=== PATIENT | male | born 1970 | race Caucasian/White ===

== ENCOUNTER 2018-02-12 21:58 | Inpatient (IN) | payer SELFPAY ==
[~2018-02-12] VITALS: Ht 180.3 cm; Wt 132.0 kg
[~2018-02-12 21:58] MED LIST: BACT800T5 PO; CEPH250T PO; GLIP5 OR; GLUCTES27 XX; LISI-357 PO; METF1000 PO; METF500 PO; NOVO7030P2 SQ
[2018-02-12] MEDS ORDERED: IOHEXOL 350 MG/ML 10 ML VIAL (for RAD DIAG) IVCONTRAST ONE (21:59)
[2018-02-12] MEDS ORDERED: SODIUM CHLOR 0.9% 1000 ML INJ 1,000 ML IV ONE ×3 (22:09→23:45)
[2018-02-12] MEDS ORDERED: SODIUM CHLORIDE 0.9% FLUSH 10 ML FLUSH IVF PRN (22:15)
[2018-02-12] MEDS ORDERED: HYDR-3583 PO (22:17)
[2018-02-12 22:18] VITALS: BP 133/81; PULSE 112; RESP 18; TEMP 98.6; O2SAT 97
[2018-02-12 22:23] VITALS: O2SAT 97
[2018-02-12] MEDS ORDERED: ONDANSETRON HCL 4 MG/2 ML VIAL IV PUSH ONE (22:30)
--- NOTE | 2018-02-12 22:43 | PD ---
HPI Chief Complaint: Altered Mental Status Time Seen by Provider: 22:09 Travel History International Travel<30 days: No Contact w/Intl Traveler<30days: No Traveled to known affect area: No History of Present Illness HPI Patient is a 47-year-old male with history of diabetes currently on insulin, presents the emergency room with his sister for evaluation of altered mental status. As per patient's sister, she last saw him normal around 5 PM tonight, reports that she left the house to attend [facility] and patient was in the shower. Reports that she came home and a family member noted that patient had fallen onto the ground and was not acting like his normal self. Reports concerns as he has some slurring his speech and patient appeared drowsy. Family reports that patient is on chronic narcotic pain medications as he has history of chronic back pain, they were unsure if he took too many narcotic pain medications today. Patient reports that he went to take a shower today, reports that he got out of the shower and does not remember what happened. Patient unsure how long he was on the floor today. He did call his nephew to help him up from the floor as he was unable to get up by himself. Patient denies use of any alcohol though family concerned that patient may have had alcohol tonight. Reports only use of his prescribed narcotic medications, no illegal drug use PFSH Past Medical History Anxiety: Yes Depression: Yes Heart Rhythm Problems: No Cancer: No Cardiovascular Problems: Yes High Cholesterol: No Chest Pain: No Congestive Heart Failure: No Diabetes: Yes Patient Takes Glucophage: No Diminished Hearing: No Gastrointestinal Disorders: Yes GERD: Yes Genitourinary: No Hypertension: Yes Immune Disorder: No Implanted Vascular Access Dvce: No Musculoskeletal: Yes Neurologic: No Reproductive: No Respiratory: Yes (pneumonia) Renal Failure: Yes Tetanus Vaccination: < 5 Years Influenza Vaccination: No Past Surgical History Other Surgery: Yes (left testacle/groin incision and drainage) Social History Alcohol Use: Yes (X2 PER MONTH/3 BEERS) Tobacco Use: Yes (1.5 ppd) Substance Use: Yes (MARIJUANA) Allergies-Medications (Allergen,Severity, Reaction): Coded Allergies: No Known Allergies (Verified Adverse Reaction, Unknown, 02/12/18) Reported Meds & Prescriptions Reported Meds & Active Scripts Active Reported Hydrocodone-Acetaminophen 10-325 mg Tab 1 Tab PO Q6H PRN Review of Systems ROS Limitations: Altered Mental Status General / Constitutional: No: Fever Eyes: No: Visual changes HENT: No: Headaches Cardiovascular: No: Chest Pain or Discomfort Respiratory: No: Shortness of Breath Gastrointestinal: Positive: Nausea, Vomiting, No: Abdominal Pain Genitourinary: No: Dysuria Musculoskeletal: No: Pain Skin: No Rash Neurologic: No: Weakness Psychiatric: No: Depression Endocrine: No: Polydipsia Hematologic/Lymphatic: No: Easy Bruising Physical Exam Narrative GENERAL: Moderate distress SKIN: Focused skin assessment warm/dry. HEAD: Atraumatic. Normocephalic. EYES: Pupils are pinpoint. No scleral icterus. No injection or drainage. ENT: No nasal bleeding or discharge. Mucous membranes pink and moist. NECK: Trachea midline. No JVD. No nuchal rigidity, negative Kernig's and Brudzinski's sign CARDIOVASCULAR: Regular rate and rhythm. No murmur appreciated. RESPIRATORY: No accessory muscle use. Clear to auscultation. Breath sounds equal bilaterally. GASTROINTESTINAL: Abdomen soft, non-tender, nondistended. Hepatic and splenic margins not palpable. MUSCULOSKELETAL: No obvious deformities. No clubbing. No cyanosis. No edema. NEUROLOGICAL: Awake and alert. No obvious cranial nerve deficits. Motor grossly within normal limits. Normal speech. PSYCHIATRIC: Appropriate mood and affect; insight and judgment normal. Data Data Last Documented VS Vital Signs Date Time Temp Pulse Resp B/P (MAP) Pulse Ox O2 Delivery O2 Flow Rate FiO2 02/13/18 00:22 84 18 154/80 (104) 98 02/12/18 22:23 Room Air 02/12/18 22:18 98.6 Orders Orders Electrocardiogram (02/12/18 22:09) Complete Blood Count With Diff (02/12/18 22:09) Comprehensive Metabolic Panel (02/12/18 22:09) Magnesium (Mg) (02/12/18 22:09) Ckmb (Isoenzyme) Profile (02/12/18 22:09) Troponin I (02/12/18 22:09) Act Partial Throm Time (Ptt) (02/12/18 22:09) Prothrombin Time / Inr (Pt) (02/12/18 22:09) Urinalysis - C+S If Indicated (02/12/18 22:09) Chest, Single Ap (02/12/18 22:09) Ct Brain W/O Iv Contrast(Rout) (02/12/18 22:09) Ct Cerv Spine W/O Contrast (02/12/18 22:09) Blood Glucose (02/12/18 22:09) Ecg Monitoring (02/12/18 22:09) Iv Access Insert/Monitor (02/12/18 22:09) Oximetry (02/12/18 22:09) Sodium Chloride 0.9% Flush (Ns Flush) (02/12/18 22:15) Sodium Chlor 0.9% 1000 Ml Inj (Ns 1000 M (02/12/18 22:09) Drug Screen, Random Urine (02/12/18 22:09) Alcohol (Ethanol) (02/12/18 22:09) Ondansetron Inj (Zofran Inj) (02/12/18 22:30) Lactic Acid Sepsis Protocol (02/12/18 23:45) Influenzae A/B Antigen (02/12/18 23:45) Blood Culture (02/12/18 23:45) Sodium Chlor 0.9% 1000 Ml Inj (Ns 1000 M (02/12/18 23:45) Sodium Chlor 0.9% 1000 Ml Inj (Ns 1000 M (02/12/18 23:45) Ct Abd/Pel W Iv Contrast(Rout) (02/13/18 00:01) Sepsis Workup Initiated (02/13/18 ) Vancomycin Inj (Vancomycin Inj) (02/13/18 00:02) Piperacil-Tazo 4.5 Gm Premix (Zosyn 4.5 (02/13/18 00:02) Insulin Human Regular Inj (Novolin R Inj (02/13/18 00:15) Blood Glucose (02/13/18 00:32) Blood Glucose (02/13/18 01:32) Iohexol 350 Inj (Omnipaque 350 Inj) (02/12/18 21:59) Sodium Chlor 0.9% 1000 Ml Inj (Ns 1000 M (02/13/18 01:00) Sodium Chlor 0.9% 1000 Ml Inj (Ns 1000 M (02/13/18 01:00) Labs Laboratory Tests Test 02/12/18 22:50 02/12/18 23:20 02/12/18 23:59 White Blood Count 20.0 TH/MM3 Red Blood Count 5.51 MIL/MM3 Hemoglobin 17.6 GM/DL Hematocrit 49.0 % Mean Corpuscular Volume 88.9 FL Mean Corpuscular Hemoglobin 31.9 PG Mean Corpuscular Hemoglobin Concent 35.9 % Red Cell Distribution Width 12.4 % Platelet Count 299 TH/MM3 Mean Platelet Volume 9.6 FL Neutrophils (%) (Auto) 80.7 % Lymphocytes (%) (Auto) 7.9 % Monocytes (%) (Auto) 6.8 % Eosinophils (%) (Auto) 0.3 % Basophils (%) (Auto) 4.3 % Neutrophils # (Auto) 16.0 TH/MM3 Lymphocytes # (Auto) 1.6 TH/MM3 Monocytes # (Auto) 1.4 TH/MM3 Eosinophils # (Auto) 0.1 TH/MM3 Basophils # (Auto) 0.9 TH/MM3 CBC Comment DIFF FINAL Differential Comment Prothrombin Time 10.5 SEC Prothromb Time International Ratio 1.0 RATIO Activated Partial Thromboplast Time 22.7 SEC Blood Urea Nitrogen 13 MG/DL Creatinine 1.00 MG/DL Random Glucose 537 MG/DL Total Protein 7.9 GM/DL Albumin 4.0 GM/DL Calcium Level 8.9 MG/DL Magnesium Level 1.5 MG/DL Alkaline Phosphatase 111 U/L Aspartate Amino Transf (AST/SGOT) 17 U/L Alanine Aminotransferase (ALT/SGPT) 39 U/L Total Bilirubin 0.4 MG/DL Sodium Level 136 MEQ/L Potassium Level 3.9 MEQ/L Chloride Level 102 MEQ/L Carbon Dioxide Level 22.4 MEQ/L Anion Gap 12 MEQ/L Estimat Glomerular Filtration Rate 80 ML/MIN Total Creatine Kinase 67 U/L Troponin I 0.02 NG/ML Ethyl Alcohol Level LESS THAN 3 MG/DL Urine Color YELLOW Urine Turbidity CLEAR Urine pH 5.0 Urine Specific Saxe GREATER/EQUAL 1.030 Urine Protein 100 mg/dL Urine Glucose (UA) 1000 OR GREATER mg/dL Urine Ketones NEG mg/dL Urine Occult Blood TRACE Urine Nitrite NEG Urine Bilirubin NEG Urine Urobilinogen 0.2 MG/DL Urine Leukocyte Esterase NEG Urine RBC 0-3 /hpf Urine WBC 0-2 /hpf Urine Squamous Epithelial Cells 0-5 /hpf Urine Bacteria NONE /hpf Microscopic Urinalysis Comment CULT NOT INDICATED Urine Opiates Screen POS Urine Barbiturates Screen NEG Urine Amphetamines Screen NEG Urine Benzodiazepines Screen POS Urine Cocaine Screen NEG Urine Cannabinoids Screen POS Lactic Acid Level 4.4 mmol/L MDM Medical Decision Making Medical Screen Exam Complete: Yes Emergency Medical Condition: Yes Medical Record Reviewed: Yes Interpretation(s) EKG at 2218: Sinus tachycardia at 114bpm, qt/qtc: 329/397, no acute st or t wave changes Vital Signs Date Time Temp Pulse Resp B/P (MAP) Pulse Ox O2 Delivery O2 Flow Rate FiO2 02/12/18 22:23 112 18 97 Room Air 02/12/18 22:23 97 Room Air 02/12/18 22:18 98.6 112 18 133/81 (98) 97 Differential Diagnosis Hyperglycemia, hypoglycemia, CVA, alcohol abuse, intracranial hemorrhage, ACS, arrhythmia, drug abuse Narrative Course Pt's BS 475, NIH scale 0, patient last seen normal around 5pm tonight, he is out of window for lysis if he is in fact suffering from CVA and this was discussed with patient's sister who is at bedside. BS 475, patient with no neurodeficits at this time, family reports that patient appears confused - he did have a syncopal episode - CT of head ordered to rule out ICH. During the course of the patients emergency department visit, the patients history, examination, and differential diagnosis were reviewed with the patient. The patient was placed on a monitoring analyst with oximetry and frequent blood pressure monitoring. The patient had an IV access obtained and blood work sent for analysis. The patient was initially provided IVF as well as zofran as patient began to vomit in the ER. The patients laboratory studies were reviewed and remarkable for CBC & BMP Diagram 02/12/18 22:50 Total Protein 7.9, Albumin 4.0, Calcium Level 8.9, Magnesium Level 1.5, Alkaline Phosphatase 111, Aspartate Amino Transf (AST/SGOT) 17, Alanine Aminotransferase (ALT/SGPT) 39, Total Bilirubin 0.4 Vital Signs Date Time Temp Pulse Resp B/P (MAP) Pulse Ox O2 Delivery O2 Flow Rate FiO2 02/12/18 22:23 112 18 97 Room Air 02/12/18 22:23 97 Room Air 02/12/18 22:18 98.6 112 18 133/81 (98) 97 Radiology studies were reviewed and remarkable for Last Impressions Head CT 02/12/182208 Signed Impressions: Service Date/Time: January 23:04 - CONCLUSION: Normal examination. Sánchez Ramirez Jr., MD Chest X-Ray 02/12/182208 Signed Impressions: Service Date/Time: January 23:18 - CONCLUSION: No acute disease. Sánchez Ramirez Jr., MD Cervical Spine CT 02/12/182208 Signed Impressions: Service Date/Time: January 23:04 - CONCLUSION: 1. No fracture or dislocation. 2. Degenerative changes as detailed above. Sánchez Ramirez Jr., MD Patient with a white blood cell count of 20,000, patient is tachycardic with a heart rate in with 112, patient does meet SIRS criteria. IV fluids were started , blood cultures as well as lactic acid are ordered. Patient was given broad- spectrum antibiotics with Zosyn as well as vancomycin. Patient reports that for the past few days, he has been having diarrhea, reports that today he began feeling nauseous. Patient with possible gastroenteritis? Patient reports history of gastric ulcer and was on omeprazole in the past. Reports that he has been having some upper abdominal pain. CT the abdomen and pelvis with IV contrast was ordered. Patient's blood sugar was elevated at 537, IV fluids as well as sq insulin was ordered Pt's lactic acid 4.4, patient has been pancultured, broad-spectrum antibiotics have been administered. Patient pending CT the abdomen and pelvis Last Impressions Abdomen/Pelvis CT 02/13/18 0001 Signed Impressions: Service Date/Time: Tuesday, February 13, 2018 00:29 - CONCLUSION: 1. No acute abnormality. 2. Hepatic steatosis. Sánchez Ramirez Jr., MD Head CT 02/12/182208 Signed Impressions: Service Date/Time: January 23:04 - CONCLUSION: Normal examination. Sánchez Ramirez Jr., MD Chest X-Ray 02/12/182208 Signed Impressions: Service Date/Time: January 23:18 - CONCLUSION: No acute disease. Sánchez Ramirez Jr., MD Cervical Spine CT 02/12/182208 Signed Impressions: Service Date/Time: January 23:04 - CONCLUSION: 1. No fracture or dislocation. 2. Degenerative changes as detailed above. Sánchez Ramirez Jr., MD CT the abdomen pelvis with no acute abnormalities, there is no clear source for patient's infection, he has been pancultured, will have medicine team follow cultures Case reviewed with Dr. Pugh who accepts patient to service Critical Care Narrative Aggregate critical care time was 45 minutes. Time to perform other separately billable procedures was not included in the critical care time. My time did not include minutes spent treating any other patients simultaneously or on activities that did not directly contribute to the patient's treatment. The services I provided to this patient were to treat and/or prevent clinically significant deterioration that could result in: , decompensation, deterioration I provided critical care services requiring my management, as noted below: Chart data review, documentation time, medication orders and management, vital sign assessments/reviewing monitor data, ordering and reviewing lab tests, ordering and interpreting/reviewing x-rays and diagnostic studies, care of the patient and discussion of the patient with the admitting physicians. Diagnosis Primary Impression: Sepsis Additional Impressions: Hyperglycemia Syncope and collapse Admitting Information Admitting Physician Requests: Admit Sharmaine Crouch DO February 12, 2018 22:43
[2018-02-12 23:02] LABS: BASOPHIL # 0.9 TH/MM3 (0-0.2); BASOPHIL % 4.3 % (0.0-2.0); EOSINOPHIL # 0.1 TH/MM3 (0-0.4); EOSINOPHIL % 0.3 % (0.0-4.0); HEMOGLOBIN 17.6 GM/DL (13.0-17.0); LYMPH % 7.9 % (9.0-44.0); LYMPHOCYTE # 1.6 TH/MM3 (1.0-4.8); MEAN CELL VOLUME 88.9 FL (80.0-100.0); MEAN CORPUSCULAR HEMOGLOBIN 31.9 PG (27.0-34.0); MEAN CORPUSCULAR HGB CONC 35.9 % (32.0-36.0); MEAN PLATELET VOLUME 9.6 FL (7.0-11.0); MONO % 6.8 % (0.0-8.0); MONOCYTE # 1.4 TH/MM3 (0-0.9); NEUT % 80.7 % (16.0-70.0); PLATELET COUNT 299 TH/MM3 (150-450); RED BLOOD COUNT 5.51 MIL/MM3 (4.50-5.90); RED CELL DISTRIBUTION WIDTH 12.4 % (11.6-17.2)
[2018-02-12 23:08] LABS: CHLORIDE 102 MEQ/L (98-107); SODIUM (NA) 136 MEQ/L (136-145)
[2018-02-12 23:11] LABS: CALCIUM 8.9 MG/DL (8.5-10.1)
[2018-02-12 23:12] LABS: BICARBONATE 22.4 MEQ/L (21.0-32.0); BLOOD UREA NITROGEN 13 MG/DL (7-18); MAGNESIUM 1.5 MG/DL (1.5-2.5)
[2018-02-12 23:14] LABS: PROTHROMBIN TIME - PATIENT 10.5 SEC (9.8-11.6)
[2018-02-12 23:15] LABS: ALT (GPT) 39 U/L (12-78); AST (GOT) 17 U/L (15-37); GLOMERULAR FILTRATION RATE 80 ML/MIN (>89)
[2018-02-12 23:17] LABS: TOTAL BILIRUBIN ADULT 0.4 MG/DL (0.2-1.0); TOTAL PROTEIN 7.9 GM/DL (6.4-8.2)
[2018-02-12 23:31] LABS: ALKALINE PHOSPHATASE 111 U/L (45-117); TROPONIN I 0.02 NG/ML (0.02-0.05)
[2018-02-12 23:31] LABS: BILIRUBIN, URINE NEG (NEG); BLOOD, URINE TRACE (NEG); GLUCOSE,URINE 1000 OR GREATER mg/dL (NEG); KETONE, URINE NEG (NEG); NITRITE,URINE NEG (NEG); URINE COLOR YELLOW (YELLW/STRAW); URINE LEUKOCYTE ESTERASE NEG (NEG)
[2018-02-12 23:32] LABS: GLUCOSE,RANDOM 537 MG/DL (74-106)
--- NOTE | 2018-02-12 23:32 | RADRPT ---
EXAM DATE/TIME: 02/12/2018 23:04 [facility] COMPARISON: No previous studies available for comparison. INDICATIONS : Patient fell hitting back of head, complains of headache and nausea. RADIATION DOSE: 67.14 CTDIvol (mGy) MEDICAL HISTORY : Cardiovascular disease. Hypertension. Diabetes mellitus type 1. SURGICAL HISTORY : None. ENCOUNTER: Initial ACUITY: 1 day PAIN SCALE: 5/10 LOCATION: cranial TECHNIQUE: Multiple contiguous axial images were obtained of the head. Using automated exposure control and adj ustment of the mA and/or kV according to patient size, radiation dose was kept as low as reasonably a chievable to obtain optimal diagnostic quality images. DICOM format image data is available electro nically for review and comparison. FINDINGS: CEREBRUM: The ventricles are normal for age. No evidence of midline shift, mass lesion, hemorrhage or acute in farction. No extra-axial fluid collections are seen. POSTERIOR FOSSA: The cerebellum and brainstem are intact. The 4th ventricle is midline. The cerebellopontine angle i s unremarkable. EXTRACRANIAL: The visualized portion of the orbits is intact. SKULL: The calvaria is intact. No evidence of skull fracture. CONCLUSION: Normal examination. Sánchez Ramirez Jr., MD on February 12, 2018 at 23:30 Board Certified Radiologist. This report was verified electronically.
--- NOTE | 2018-02-12 23:33 | RADRPT ---
EXAM DATE/TIME: 02/12/2018 23:18 [facility] COMPARISON: CHEST SINGLE AP, April 21, 2016, 13:29. INDICATIONS : Syncopal episode today MEDICAL HISTORY : Cardiovascular disease. Hypertension Diabetes mellitus type I. SURGICAL HISTORY : None. ENCOUNTER: Initial ACUITY: 1 day PAIN SCORE: 0/10 LOCATION: Bilateral chest FINDINGS: A single view of the chest demonstrates the lungs to be symmetrically aerated without evidence of mas s, infiltrate or effusion. The cardiomediastinal contours are unremarkable. Osseous structures are intact. CONCLUSION: No acute disease. Sánchez Ramirez Jr., MD on February 12, 2018 at 23:31 Board Certified Radiologist. This report was verified electronically.
[2018-02-12 23:36] LABS: RBC, URINE 0-3 /hpf (0-3); SQUAMOUS EPITHELIAL CELL URINE 0-5 /hpf (0-5); WBC, URINE 0-2 /hpf (0-5)
--- NOTE | 2018-02-12 23:37 | RADRPT ---
EXAM DATE/TIME: 02/12/2018 23:04 [facility] COMPARISON: No previous studies available for comparison. INDICATIONS : Patient fell hitting head, complains of neck pain. RADIATION DOSE: 26.73 CTDIvol (mGy) MEDICAL HISTORY : Cardiovascular disease. Hypertension. Diabetes mellitus type 1. SURGICAL HISTORY : None. ENCOUNTER: Initial ACUITY: 1 day PAIN SCALE: 5/10 LOCATION: neck TECHNIQUE: Volumetric scanning of the cervical spine was performed. Multiplanar reconstructions in the sagittal, coronal and oblique axial planes were performed. Using automated exposure control and adjustment o f the mA and/or kV according to patient size, radiation dose was kept as low as reasonably achievable to obtain optimal diagnostic quality images. DICOM format image data is available electronically f or review and comparison. FINDINGS: VERTEBRAE: Normal vertebral body height. ALIGNMENT: No evidence of subluxation. C2-C3: The bony spinal canal is normal in size. No evidence of disc bulge or herniation. The neural forami na are bilaterally patent. C3-C4: The bony spinal canal is normal in size. No evidence of disc bulge or herniation. Prominent bony hyp ertrophy more pronounced on the left with severe left neural foraminal narrowing and moderate right n eural foraminal narrowing. C4-C5: There is a broad-based disc bulge eccentric to the right. This in combination with prominent bony hyp ertrophy causes narrowing of the right lateral recess. Left lateral recess is patent. Severe narrowin g of the right and moderate narrowing of the left neural foramen. Central canal remains patent. C5-C6: The bony spinal canal is normal in size. No evidence of disc bulge or herniation. Prominent bony hyp ertrophy bilaterally generating severe right and moderate left neural foraminal narrowing. C6-C7: The bony spinal canal is normal in size. No evidence of disc bulge or herniation. Pronounced bony un covertebral hypertrophy with severe bilateral neural foraminal narrowing. C7-T1: The bony spinal canal is normal in size. No evidence of disc bulge or herniation. The neural forami na are bilaterally patent. CONCLUSION: 1. No fracture or dislocation. 2. Degenerative changes as detailed above. Sánchez Ramirez Jr., MD on February 12, 2018 at 23:32 Board Certified Radiologist. This report was verified electronically.
[2018-02-13] VITALS (21 sets, daily range): BP systolic 104–164; BP diastolic 58–84; PULSE 66–86; RESP 10–30; TEMP 97.9–99.1; O2SAT 92–98
[2018-02-13] MEDS ORDERED: PIPERACIL-TAZO 4.5 GM PREMIX 100 ML IV STA (00:02)
[2018-02-13] MEDS ORDERED: VANCOMYCIN INJ 1,000 MG in SODIUM CHLOR 0.9% 250 ML INJ 250 ML IV STA (00:02)
[2018-02-13] MEDS ORDERED: INSULIN HUMAN REGULAR 1,000 UNITS/10 ML VIAL SQ ONE (00:15)
[2018-02-13 00:48] LABS: LACTIC ACID SEPSIS PROTOCOL 4.4 mmol/L (0.4-2.0)
--- NOTE | 2018-02-13 00:54 | RADRPT ---
EXAM DATE/TIME: 02/13/2018 00:29 [facility] COMPARISON: No previous studies available for comparison. INDICATIONS : Abdominal pain. IV CONTRAST: 95 cc Omnipaque 350 (iohexol) IV ORAL CONTRAST: No oral contrast ingested. RADIATION DOSE: 22.07 CTDIvol (mGy) MEDICAL HISTORY : Cardiovascular disease. Hypertension. Diabetes mellitus type 1. SURGICAL HISTORY : None. ENCOUNTER: Initial ACUITY: 1 day PAIN SCALE: 0/10 LOCATION: abdomen TECHNIQUE: Volumetric scanning of the abdomen and pelvis was performed. Using automated exposure control and ad justment of the mA and/or kV according to patient size, radiation dose was kept as low as reasonably achievable to obtain optimal diagnostic quality images. DICOM format image data is available electro nically for review and comparison. FINDINGS: LOWER LUNGS: The visualized lower lungs are clear. LIVER: Homogeneously low in density without lesion. There is no dilation of the biliary tree. No calcified gallstones. SPLEEN: Normal size without lesion. PANCREAS: Within normal limits. KIDNEYS: Normal in size and shape. There is no mass, stone or hydronephrosis. ADRENAL GLANDS: Within normal limits. VASCULAR: There is no aortic aneurysm. BOWEL/MESENTERY: The stomach, small bowel, and colon demonstrate no acute abnormality. There is no free intraperitone al air or fluid. Appendix is normal by CT criteria. ABDOMINAL WALL: Within normal limits. RETROPERITONEUM: There is no lymphadenopathy. BLADDER: No wall thickening or mass. REPRODUCTIVE: Within normal limits. INGUINAL: There is no lymphadenopathy or hernia. MUSCULOSKELETAL: Within normal limits for patient age. CONCLUSION: 1. No acute abnormality. 2. Hepatic steatosis. Sánchez Ramirez Jr., MD on February 13, 2018 at 0:50 Board Certified Radiologist. This report was verified electronically.
[2018-02-13] MEDS ORDERED: SODIUM CHLOR 0.9% 1000 ML INJ 1,000 ML IV ONE ×2 (01:00)
[2018-02-13] MEDS: SODIUM CHLOR 0.9% 1000 ML INJ 1,000 ML IV SCH ×4 (01:27→23:11)
[2018-02-13] MEDS ORDERED: SENNOSIDES 8.6 MG TAB PO PRN (01:30)
[2018-02-13] MEDS ORDERED: BISACODYL 10 MG SUPP RECTAL PRN (01:30)
[2018-02-13] MEDS ORDERED: MAGNESIUM HYDROXIDE SUSP 30 ML CUP PO PRN (01:30)
[2018-02-13] MEDS ORDERED: ASPIRIN 325 MG TAB PO ONE (01:30)
[2018-02-13] MEDS ORDERED: SODIUM CHLORIDE 0.9% FLUSH 10 ML FLUSH IV FLUSH PRN (01:30)
[2018-02-13] MEDS ORDERED: GLUCAGON 1 MG/ML VIAL OTHER PRN (01:30)
[2018-02-13] MEDS ORDERED: ACETAMINOPHEN 325 MG TAB PO PRN (01:30)
[2018-02-13] MEDS ORDERED: Vancomycin Consult Pharmacy 1 EA OTHER SCH (01:30)
[2018-02-13] MEDS ORDERED: NALOXONE HCL 0.4 MG/ML AMP IV PUSH PRN (01:30)
[2018-02-13] MEDS ORDERED: DEXTROSE 50% IN WATER 50 ML VIAL(D50) IV PUSH PRN (01:30)
[2018-02-13] MEDS ORDERED: LACTULOSE SYRUP 20 GM/30 ML CUP PO PRN (01:30)
[2018-02-13] MEDS ORDERED: ONDANSETRON ODT 4 MG TAB PO PRN (01:45)
[2018-02-13] MEDS ORDERED: VANCOMYCIN 1 GM/200 ML PREMIX IV ONE (03:00)
[2018-02-13] MEDS: ACETAMINOPHEN/HYDROcodone 325 MG/10 MG TAB PO PRN ×4 (03:33→22:06)
[2018-02-13] MEDS: PIPERACIL-TAZO 3.375 GM PREMIX 50 ML IV SCH ×4 (05:47→23:10)
[2018-02-13] MEDS: SODIUM CHLORIDE 0.9% FLUSH 10 ML FLUSH IV FLUSH SCH ×2 (09:00→20:26)
[2018-02-13] MEDS: DOCUSATE SODIUM 50 MG/SENNA 8.6 MG TAB PO SCH ×2 (09:00→20:27)
[2018-02-13] MEDS: INSULIN ASPART SUPPLEMENTAL SCALE SQ SCH ×5 (09:35→20:45)
[2018-02-13 11:20] LABS: BICARBONATE 26.6 MEQ/L (21.0-32.0); CALCIUM 7.6 MG/DL (8.5-10.1); CREATININE 0.69 MG/DL (0.60-1.30)
[2018-02-13] MEDS ORDERED: VANCOMYCIN INJ 1,000 MG in SODIUM CHLOR 0.9% 250 ML INJ 250 ML IV SCH (12:00)
[2018-02-13] MEDS: VANCOMYCIN INJ 2,000 MG in SODIUM CHLORID 0.9% 500 ML INJ 500 ML IV SCH (12:35)
--- NOTE | 2018-02-13 13:21 | HHI.HP ---
[facility] No Primary Care Physician Admission Diagnosis Sepsis, hyperglycemia, syncope Diagnoses: Chief Complaint: passed out Travel History International Travel<30 Days: No Contact w/Intl Traveler <30 Da: No Traveled to Known Affected Are: No Sepsis Criteria SIRS Criteria (2 or more): RR > 20 or PaCO2 < 32, WBC > 47280, < 4000 or > 10 % bands Severe Sepsis (+one): Lactate >2 Criteria Outcome: Meets SIRS criteria History of Present Illness Patient is a 47 year old man who is non compliant with DM2 management and who uses illicit drugs. He was found by his family on the ground with an unwitnessed fall. He had some slurred speech and was drowsy. Patient recalls being inthe shower and then his family was waking him up. He has no pain complaint. HE says he may or may not have taken insulin "a few Units" without checking his blood sugar. He also admits to to recent THC, Opioids and and benzos to help him relax. He was brought to the ER and fount to have an elevated WBC and lactic acid. he denies junito fever or chills but thinks he had an episode of Diarrhea earlier this week. His random BG was over 500. The patient is now back to baseline. Review of Systems Constitutional: COMPLAINS OF: Fatigue, DENIES: Diaphoretic episodes, Fever, Weight gain, Weight loss, Chills, Dizziness, Change in appetite, Night Sweats Endocrine: DENIES: Heat/cold intolerance, Polydipsia, Polyuria, Polyphagia Eyes: DENIES: Blurred vision, Diplopia, Eye inflammation, Eye pain, Vision loss , Photosensitivity, Double Vision Ears, nose, mouth, throat: DENIES: Tinnitus, Hearing loss, Vertigo, Nasal discharge, Oral lesions, Throat pain, Hoarseness, Ear Pain, Running Nose, Epistaxis, Sinus Pain, Toothache, Odynophagia Respiratory: DENIES: Apneas, Cough, Snoring, Wheezing, Hemoptysis, Sputum production, Shortness of breath Cardiovascular: DENIES: Chest pain, Palpitations, Syncope, Dyspnea on Exertion , PND, Lower Extremity Edema, Orthopnea, Claudication Gastrointestinal: DENIES: Abdominal pain, Black stools, Bloody stools, Constipation, Diarrhea, Nausea, Vomiting, Difficulty Swallowing, Anorexia Genitourinary: DENIES: Sexual dysfunction, Urinary frequency, Urinary incontinence, Urgency, Hematuria, Dysuria, Nocturia, Penile Discharge, Testicular Pain, Testicular Swelling Musculoskeletal: DENIES: Joint pain, Muscle aches, Stiffness, Joint Swelling, Back pain, Neck pain Integumentary: DENIES: Abnormal pigmentation, Nail changes, Pruritus, Rash Hematologic/lymphatic: DENIES: Bruising, Lymphadenopathy Immunologic/allergic: DENIES: Eczema, Urticaria Neurologic: DENIES: Abnormal gait, Headache, Localized weakness, Paresthesias, Seizures, Speech Problems, Tremor, Poor Balance Psychiatric: DENIES: Anxiety, Confusion, Mood changes, Depression, Hallucinations, Agitation, Suicidal Ideation, Homicidal Ideation, Delusions Except as stated in HPI: all other systems reviewed are Neg Past Family Social History Past Medical History dm htn Past Surgical History groin abscess i and d Reported Medications insulin infrequently Allergies: Coded Allergies: No Known Allergies (Verified Allergy, Unknown, 02/13/18) Active Ordered Medications reviewed in the emr Family History mother from etoh complications father with dm, CAD, htn Social History thc, street benzos, opiods lives with family denies etoh Physical Exam Vital Signs Vital Signs Date Time Temp Pulse Resp B/P (MAP) Pulse Ox O2 Delivery O2 Flow Rate FiO2 02/13/18 11:18 30 02/13/18 04:02 84 02/13/18 04:02 97.9 84 23 119/75 (90) 97 02/13/18 02:54 84 18 87 02/13/18 02:52 82 18 151/84 (106) 97 Room Air 02/13/18 01:41 84 18 145/83 (103) 98 Nasal Cannula 2.00 02/13/18 00:22 84 18 154/80 (104) 98 02/12/18 22:23 112 18 97 Room Air 02/12/18 22:23 97 Room Air 02/12/18 22:18 98.6 112 18 133/81 (98) 97 Physical Exam GENERAL: This is a well-nourished, well-developed patient, in no apparent distress. SKIN: No rashes, ecchymoses or lesions. Cool and dry. HEAD: Atraumatic. Normocephalic. No temporal or scalp tenderness. EYES: Pupils equal round and reactive. Extraocular motions intact. No scleral icterus. No injection or drainage. ENT: Nose without bleeding, purulent drainage or septal hematoma. Throat without erythema, tonsillar hypertrophy or exudate. Uvula midline. Airway patent. NECK: Trachea midline. No JVD or lymphadenopathy. Supple, nontender, no meningeal signs. CARDIOVASCULAR: Regular rate and rhythm without murmurs, gallops, or rubs. RESPIRATORY: Clear to auscultation. Breath sounds equal bilaterally. No wheezes , rales, or rhonchi. GASTROINTESTINAL: Abdomen soft, non-tender, nondistended. No hepato-splenomegaly , or palpable masses. No guarding. MUSCULOSKELETAL: Extremities without clubbing, cyanosis, or edema. No joint tenderness, effusion, or edema noted. No calf tenderness. Negative Homans sign bilaterally. NEUROLOGICAL: Awake and alert. Cranial nerves II through XII intact. Motor and sensory grossly within normal limits. Five out of 5 muscle strength in all muscle groups. Normal speech. Laboratory Laboratory Tests Test 02/12/18 22:50 02/12/18 23:20 02/12/18 23:59 02/13/18 02:30 White Blood Count 20.0 Red Blood Count 5.51 Hemoglobin 17.6 Hematocrit 49.0 Mean Corpuscular Volume 88.9 Mean Corpuscular Hemoglobin 31.9 Mean Corpuscular Hemoglobin Concent 35.9 Red Cell Distribution Width 12.4 Platelet Count 299 Mean Platelet Volume 9.6 Neutrophils (%) (Auto) 80.7 Lymphocytes (%) (Auto) 7.9 Monocytes (%) (Auto) 6.8 Eosinophils (%) (Auto) 0.3 Basophils (%) (Auto) 4.3 Neutrophils # (Auto) 16.0 Lymphocytes # (Auto) 1.6 Monocytes # (Auto) 1.4 Eosinophils # (Auto) 0.1 Basophils # (Auto) 0.9 CBC Comment DIFF FINAL Differential Comment Prothrombin Time 10.5 Prothromb Time International Ratio 1.0 Activated Partial Thromboplast Time 22.7 Blood Urea Nitrogen 13 Creatinine 1.00 Random Glucose 537 Total Protein 7.9 Albumin 4.0 Calcium Level 8.9 Magnesium Level 1.5 Alkaline Phosphatase 111 Aspartate Amino Transf (AST/SGOT) 17 Alanine Aminotransferase (ALT/SGPT) 39 Total Bilirubin 0.4 Sodium Level 136 Potassium Level 3.9 Chloride Level 102 Carbon Dioxide Level 22.4 Anion Gap 12 Estimat Glomerular Filtration Rate 80 Total Creatine Kinase 67 Troponin I 0.02 Ethyl Alcohol Level LESS THAN 3 Urine Color YELLOW Urine Turbidity CLEAR Urine pH 5.0 Urine Specific [place] GREATER/EQUAL 1.030 Urine Protein 100 Urine Glucose (UA) 1000 OR GREATER Urine Ketones NEG Urine Occult Blood TRACE Urine Nitrite NEG Urine Bilirubin NEG Urine Urobilinogen 0.2 Urine Leukocyte Esterase NEG Urine RBC 0-3 Urine WBC 0-2 Urine Squamous Epithelial Cells 0-5 Urine Bacteria NONE Microscopic Urinalysis Comment CULT NOT INDICATED Urine Opiates Screen POS Urine Barbiturates Screen NEG Urine Amphetamines Screen NEG Urine Benzodiazepines Screen POS Urine Cocaine Screen NEG Urine Cannabinoids Screen POS Lactic Acid Level 4.4 4.7 Test 02/13/18 09:55 Blood Urea Nitrogen 10 Creatinine 0.69 Random Glucose 252 Calcium Level 7.6 Sodium Level 139 Potassium Level 3.8 Chloride Level 106 Carbon Dioxide Level 26.6 Anion Gap 6 Estimat Glomerular Filtration Rate 123 Date/Time Source Procedure Growth Status 02/12/18 00:10 Blood Peripheral Aerobic Blood Culture Pending Received 02/12/18 00:10 Blood Peripheral Anaerobic Blood Culture Pending Received 02/12/18 00:10 Nasal Aspirate Influenza Types A,B Antigen (BETINA) - Final NEGATIVE FOR FLU A AND B ANTIGEN.... Complete Result Diagram: 02/12/18224902/13/18 0955 Imaging Last Impressions Abdomen/Pelvis CT 02/13/18 0001 Signed Impressions: Service Date/Time: Tuesday, February 13, 2018 00:29 - CONCLUSION: 1. No acute abnormality. 2. Hepatic steatosis. Sánchez Ramirez Jr., MD Head CT 02/12/182208 Signed Impressions: Service Date/Time: January 23:04 - CONCLUSION: Normal examination. Sánchez Ramirez Jr., MD Chest X-Ray 02/12/182208 Signed Impressions: Service Date/Time: January 23:18 - CONCLUSION: No acute disease. Sánchez Ramirez Jr., MD Cervical Spine CT 02/12/182208 Signed Impressions: Service Date/Time: January 23:04 - CONCLUSION: 1. No fracture or dislocation. 2. Degenerative changes as detailed above. Sánchez Ramirez Jr., MD Septic Shock Reassessment Septic shock perfusion: reassessment completed Caprini VTE Risk Assessment Caprini VTE Risk Assessment: Mod/High Risk (score >= 2) Caprini Risk Assessment Model Point Value = 1 Point Value = 2 Point Value = 3 Point Value = 5 Age 41-60 Minor surgery BMI > 25 kg/m2 Swollen legs Varicose veins or History of unexplained or recurrent spontaneous Oral contraceptives or hormone replacement Sepsis (< 1 month) Serious lung disease, including pneumonia (< 1 month) Abnormal pulmonary function Acute myocardial infarction Congestive heart failure (< 1 month) History of inflammatory bowel disease Medical patient at bed rest Age 61-74 Arthroscopic surgery Major open surgery (> 45 min) Laparoscopic surgery (> 45 min) Malignancy Confined to bed (> 72 hours) Immobilizing plaster cast Central venous access Age >= 75 History of VTE Family history of VTE Factor V Leiden Prothrombin [id number] Lupus anticoagulant Anticardiolipin antibodies Elevated serum homocysteine Heparin-induced thrombocytopenia Other congenital or acquired thrombophilia Stroke (< 1 month) Elective arthroplasty Hip, pelvis, or leg fracture Acute spinal cord injury (< 1 month) Prophylaxis Regimen Total Risk Factor Score Risk Level Prophylaxis Regimen 0-1 Low Early ambulation 2 Moderate Order ONE of the following: *Sequential Compression Device (SCD) *Heparin 5000 units SQ BID 3-4 Higher Order ONE of the following medications: *Heparin 5000 units SQ TID *Enoxaparin/Lovenox 40 mg SQ daily (WT < 150 kg, CrCl > 30 mL/min) *Enoxaparin/Lovenox 30 mg SQ daily (WT < 150 kg, CrCl > 10-29 mL/min) *Enoxaparin/Lovenox 30 mg SQ BID (WT < 150 kg, CrCl > 30 mL/min) AND/OR *Sequential Compression Device (SCD) 5 or more Highest Order ONE of the following medications: *Heparin 5000 units SQ TID (Preferred with Epidurals) *Enoxaparin/Lovenox 40 mg SQ daily (WT < 150 kg, CrCl > 30 mL/min) *Enoxaparin/Lovenox 30 mg SQ daily (WT < 150 kg, CrCl > 10-29 mL/min) *Enoxaparin/Lovenox 30 mg SQ BID (WT < 150 kg, CrCl > 30 mL/min) AND *Sequential Compression Device (SCD) Assessment and Plan Problem List: (1) Hyperglycemia ICD Code: R73.9 - Hyperglycemia, unspecified Status: Acute Plan: secondary to non adherence ptn education provided ssi, ada diet (2) Diabetes ICD Code: E11.9 - Type 2 diabetes mellitus without complications Status: Chronic (3) Syncope and collapse ICD Code: R55 - Syncope and collapse Status: Acute Plan: may be multifactorial due to street polypharmacy (thc, benadryl, opiods, and benzos) and uncontrolled DM2 no infectious source empiric zosyn and vanco and follow up cultures, Lactic acid, and wbc's Berta Schafer MD February 13, 2018 13:21
[2018-02-13 14:23] LABS: AUTOMATED NEUTROPHIL # 7.7 TH/MM3 (1.8-7.7); BASOPHIL # 0.1 TH/MM3 (0-0.2); BASOPHIL % 1.3 % (0.0-2.0); EOSINOPHIL # 0.2 TH/MM3 (0-0.4); EOSINOPHIL % 1.6 % (0.0-4.0); HEMATOCRIT 41.5 % (39.0-51.0); HEMOGLOBIN 14.1 GM/DL (13.0-17.0); LYMPHOCYTE # 2.6 TH/MM3 (1.0-4.8); MEAN CELL VOLUME 89.2 FL (80.0-100.0); MEAN CORPUSCULAR HEMOGLOBIN 30.4 PG (27.0-34.0); MEAN PLATELET VOLUME 8.8 FL (7.0-11.0); MONO % 6.4 % (0.0-8.0); MONOCYTE # 0.7 TH/MM3 (0-0.9); NEUT % 67.7 % (16.0-70.0); PLATELET COUNT 184 TH/MM3 (150-450); RED BLOOD COUNT 4.65 MIL/MM3 (4.50-5.90); RED CELL DISTRIBUTION WIDTH 11.9 % (11.6-17.2); WHITE BLOOD COUNT 11.3 TH/MM3 (4.0-11.0)
[2018-02-13 14:34] LABS: CHLORIDE 104 MEQ/L (98-107); SODIUM (NA) 137 MEQ/L (136-145)
--- NOTE | 2018-02-13 14:35 | EKG ---
Date Performed: 02/12/2018 Time Performed: 22:18:18 PTAGE: 47 years EKG: SINUS TACHYCARDIA LEFT ANTERIOR FASCICULAR BLOCK POSSIBLE ANTERIOR MYOCARDIAL INFARCTION AB NORMAL ECG PREVIOUS TRACING : 04/21/2016 12.29 Since the previous tracing, no significant change noted DOCTOR: Binu Zuniga Interpretating Date/Time 02/13/2018 14:33:00
[2018-02-13 14:37] LABS: CALCIUM 7.7 MG/DL (8.5-10.1); GLUCOSE,RANDOM 253 MG/DL (74-106)
[2018-02-13 14:38] LABS: BLOOD UREA NITROGEN 11 MG/DL (7-18)
[2018-02-13 14:41] LABS: CREATININE 0.77 MG/DL (0.60-1.30); GLOMERULAR FILTRATION RATE 108 ML/MIN (>89)
[2018-02-13 18:42] LABS: HEMOGLOBIN A1C 11.1 % (4.3-6.0)
[2018-02-13] MEDS ORDERED: INSULIN DETEMIR 100 UNITS/ML VIAL SQ SCH (21:00)
[2018-02-13] MEDS ORDERED: CYCLOBENZAPRINE HCL 10 MG TAB PO ONE (21:15)
[2018-02-14] VITALS: BP 122/65; PULSE 68; PULSE 70; RESP 12; TEMP 98.4
[2018-02-14] MEDS: VANCOMYCIN INJ 2,000 MG in SODIUM CHLORID 0.9% 500 ML INJ 500 ML IV SCH (02:19)
[2018-02-14 02:20] VITALS: BP 119/69; PULSE 76; RESP 27
[2018-02-14 04:00] VITALS: PULSE 68; PULSE 70; RESP 14; TEMP 98.8
[2018-02-14] MEDS: PIPERACIL-TAZO 3.375 GM PREMIX 50 ML IV SCH (05:44)
[2018-02-14] MEDS: ACETAMINOPHEN/HYDROcodone 325 MG/10 MG TAB PO PRN ×2 (05:44→12:10)
[2018-02-14 05:48] VITALS: BP 154/81; PULSE 77; RESP 16
[2018-02-14 07:26] LABS: AUTOMATED NEUTROPHIL # 5.9 TH/MM3 (1.8-7.7); BASOPHIL # 0.1 TH/MM3 (0-0.2); BASOPHIL % 1.1 % (0.0-2.0); EOSINOPHIL # 0.2 TH/MM3 (0-0.4); EOSINOPHIL % 2.2 % (0.0-4.0); HEMATOCRIT 39.7 % (39.0-51.0); HEMOGLOBIN 13.8 GM/DL (13.0-17.0); LYMPH % 25.6 % (9.0-44.0); LYMPHOCYTE # 2.3 TH/MM3 (1.0-4.8); MEAN CELL VOLUME 88.7 FL (80.0-100.0); MEAN CORPUSCULAR HEMOGLOBIN 30.8 PG (27.0-34.0); MEAN CORPUSCULAR HGB CONC 34.8 % (32.0-36.0); MEAN PLATELET VOLUME 9.9 FL (7.0-11.0); MONO % 4.3 % (0.0-8.0); MONOCYTE # 0.4 TH/MM3 (0-0.9); NEUT % 66.8 % (16.0-70.0); PLATELET COUNT 187 TH/MM3 (150-450); RED BLOOD COUNT 4.48 MIL/MM3 (4.50-5.90); RED CELL DISTRIBUTION WIDTH 12.3 % (11.6-17.2); WHITE BLOOD COUNT 8.9 TH/MM3 (4.0-11.0)
[2018-02-14 07:28] LABS: CALCIUM 7.5 MG/DL (8.5-10.1)
[2018-02-14 07:29] LABS: BICARBONATE 26.4 MEQ/L (21.0-32.0)
[2018-02-14 07:32] LABS: CREATININE 0.55 MG/DL (0.60-1.30)
[2018-02-14 08:00] VITALS: BP 145/79; PULSE 60; PULSE 64; RESP 19; TEMP 98.6; O2SAT 94
[2018-02-14] MEDS: INSULIN ASPART SUPPLEMENTAL SCALE SQ SCH (08:47)
[2018-02-14] MEDS: SODIUM CHLORIDE 0.9% FLUSH 10 ML FLUSH IV FLUSH SCH (08:48)
[2018-02-14] MEDS: DOCUSATE SODIUM 50 MG/SENNA 8.6 MG TAB PO SCH (08:48)
[2018-02-14 10:00] VITALS: PULSE 60
[2018-02-14] MEDS ORDERED: LEVEMIR SQ (11:24)
[2018-02-14] MEDS ORDERED: GLUCTES12 (11:25)
[2018-02-14] MEDS ORDERED: GLUCKIT15 (11:25)
[2018-02-14] MEDS ORDERED: LANCETS1 MI1 (11:25)
--- NOTE | 2018-02-14 11:26 | HHI.DCPOC ---
Discharge Care Plan Diagnosis: (1) Diabetes (2) Hyperglycemia (3) Syncope and collapse Goals to Promote Your Health * To prevent worsening of your condition and complications * To maintain your health at the optimal level Directions to Meet Your Goals Take your medications as prescribed Follow your dietary instruction Follow activity as directed Keep your appointments as scheduled Take your immunizations and boosters as scheduled If your symptoms worsen call your PCP, if no PCP go to Urgent Care Center or Emergency Room Smoking is Dangerous to Your Health. Avoid second hand smoke Call the 24-hour hour crisis hotline for domestic abuse at Berta Schafer MD February 14, 2018 11:26
--- NOTE | 2018-02-14 11:29 | HHI.DS ---
Discharge Summary Admission Date February 13, 2018 at 01:31 Discharge Date: February 14, 2018 Admitting Diagnosis Sepsis, hyperglycemia, syncope (1) Hyperglycemia ICD Code: R73.9 - Hyperglycemia, unspecified Status: Acute (2) Diabetes ICD Code: E11.9 - Type 2 diabetes mellitus without complications Status: Chronic (3) Syncope and collapse ICD Code: R55 - Syncope and collapse Status: Acute Procedures None Brief History - From Admission Patient is a 47 year old man who is non compliant with DM2 management and who uses illicit drugs. He was found by his family on the ground with an unwitnessed fall. He had some slurred speech and was drowsy. Patient recalls being inthe shower and then his family was waking him up. He has no pain complaint. HE says he may or may not have taken insulin "a few Units" without checking his blood sugar. He also admits to to recent THC, Opioids and and benzos to help him relax. He was brought to the ER and fount to have an elevated WBC and lactic acid. he denies junito fever or chills but thinks he had an episode of Diarrhea earlier this week. His random BG was over 500. The patient is now back to baseline. CBC/BMP: 02/14/18 0541 02/14/18 0541 Significant Findings Laboratory Tests Test 02/12/18 22:50 02/12/18 23:20 02/12/18 23:59 02/13/18 02:30 White Blood Count 20.0 TH/MM3 (4.0-11.0) Hemoglobin 17.6 GM/DL (13.0-17.0) Neutrophils (%) (Auto) 80.7 % (16.0-70.0) Lymphocytes (%) (Auto) 7.9 % (9.0-44.0) Basophils (%) (Auto) 4.3 % (0.0-2.0) Neutrophils # (Auto) 16.0 TH/MM3 (1.8-7.7) Monocytes # (Auto) 1.4 TH/MM3 (0-0.9) Basophils # (Auto) 0.9 TH/MM3 (0-0.2) Activated Partial Thromboplast Time 22.7 SEC (24.3-30.1) Random Glucose 537 MG/DL (74-106) Estimat Glomerular Filtration Rate 80 ML/MIN (>89) Urine Protein 100 mg/dL (NEG-TRACE) Urine Glucose (UA) 1000 OR GREATER mg/dL Urine Opiates Screen POS (NEG) Urine Benzodiazepines Screen POS (NEG) Urine Cannabinoids Screen POS (NEG) Lactic Acid Level 4.4 mmol/L (0.4-2.0) 4.7 mmol/L (0.4-2.0) Test 02/13/18 09:55 02/13/18 14:00 02/14/18 05:41 Random Glucose 252 MG/DL (74-106) 253 MG/DL (74-106) 189 MG/DL (74-106) Calcium Level 7.6 MG/DL (8.5-10.1) 7.7 MG/DL (8.5-10.1) 7.5 MG/DL (8.5-10.1) White Blood Count 11.3 TH/MM3 (4.0-11.0) Hemoglobin A1c 11.1 % (4.3-6.0) Lactic Acid Level 2.1 mmol/L (0.4-2.0) Red Blood Count 4.48 MIL/MM3 (4.50-5.90) Blood Urea Nitrogen 6 MG/DL (7-18) Creatinine 0.55 MG/DL (0.60-1.30) PE at Discharge GENERAL: This is a well-nourished, well-developed patient, in no apparent distress. CARDIOVASCULAR: Regular rate and rhythm without murmurs, gallops, or rubs. RESPIRATORY: Clear to auscultation. Breath sounds equal bilaterally. No wheezes , rales, or rhonchi. GASTROINTESTINAL: Abdomen soft, non-tender, nondistended. Normal active bowel sounds MUSCULOSKELETAL: Extremities without clubbing, cyanosis, or edema. NEURO: Alert & Oriented x4 to person, place, time, situation. Moves all ext x4 Pt update on day of discharge Patient doing well. Blood sugars still uncontrolled although greatly improved with elevated hemoglobin A1c greater than 10. Patient reports that he will likely not be adherent with medication management. I did advise patient to continue with allocating funds to diabetic management in lieu of street drugs for which he had been using his limited funds. No events overnight. No evidence of sepsis Hospital Course This patient is a 47-year-old gentleman with a history of uncontrolled diabetes due to nonadherence. Patient's hemoglobin ANC was greater than 10. He reports lack of funds however he does obtain street drugs. Likely an unintentional polypharmacy episode led to his syncopal episode. There is no evidence of sepsis although he had a leukocytosis and elevated lactic acid. No source was found. Patient is discharged home Pt Condition on Discharge: Good Discharge Disposition: Discharge Home Discharge Time: <= 30 minutes Discharge Instructions DIET: Follow Instructions for: Diabetic Diet Activities you can perform: Regular-No Restrictions Follow up Referrals: PCP Follow-up - 2 Weeks New Medications: Blood Glucose Monitoring W/Device (Glucocom Blood Glucose Mo W/Device) 1 Kit Kit KIT .XX DIRECTED for Blood Sugar Management, #1 Glucocom Test Strips (Glucocom Test Strips) 1 Genny Genny EA .XX DIRECTED for Blood Sugar Management, #1 Lancets (Lancets) 1 Mis Mis EA .XX DIRECTED for Blood Sugar Management, #1 0 Refills Insulin Detemir Inj (Levemir Inj) 1,000 unit/ 10 ML Vial 10 UNITS SQ HS for Blood Sugar Management, #31 INJECTION Do not mix with any other Insulin. Continued Medications: Hydrocodone-Acetaminophen (Hydrocodone-Acetaminophen) 10-325 mg Tab 1 TAB PO Q6H PRN for PAIN, TAB 0 Refills Berta Schafer MD February 14, 2018 11:29
[2018-02-14] MEDS ORDERED: VANCOMYCIN TROUGH ONE (13:45)
[2018-02-14 17:59] LABS: CHOLESTEROL 170 MG/DL (120-200); TRIGLYCERIDES 232 MG/DL (42-150)
[2018-02-14 18:00] LABS: CHOLESTEROL/ HDL RATIO 4.23 RATIO; HDL CHOLESTEROL 40.1 MG/DL (40.0-60.0); LDL CHOLESTEROL 84 MG/DL (0-99)
== END 2018-02-14 12:33 | disposition home or self-care (01) | DRG 639 ==
LOC: PHED 21:58 → PHEDA 02-13 01:31 → PHICU 02-13 02:45
PROVIDERS: ADMIT Hospitalist; ATTEND Hospitalist
DX: E11.65 Type 2 diabetes mellitus with hyperglycemia (principal); I10 Essential (primary) hypertension; R55 Syncope and collapse; R19.7 Diarrhea, unspecified; R29.700 NIHSS score 0; F19.90 Other psychoactive substance use, unspecified, uncomplicated; R41.82 Altered mental status, unspecified; W19.XXXA Unspecified fall, initial encounter; K21.9 Gastro-esophageal reflux disease without esophagitis; F17.210 Nicotine dependence, cigarettes, uncomplicated; M54.9 Dorsalgia, unspecified; Z91.19 Patient's noncompliance with other medical treatment and regimen; Z87.11 Personal history of peptic ulcer disease; Z83.3 Family history of diabetes mellitus; Z82.49 Family history of ischemic heart disease and other diseases of the circulatory system; Z79.891 Long term (current) use of opiate analgesic; Z79.4 Long term (current) use of insulin
CPT/HCPCS: 70450; 71045; 72125; 74177; 80048; 80053; 80061; 80307; 81001; 82550; 82948; 83036; 83605; 83735; 84443; 84484; 85025; 85610; 85730; 87040; 87804; 93005; 96361; 96365; 96372; 96375; J1815; J2405; J2543; J3370; J7030; J7040; J7050; Q9967

== ENCOUNTER 2018-03-15 10:42 | Emergency (ER) | payer OTHER ==
[~2018-03-15] VITALS: Ht 180.3 cm; Wt 125.9 kg
[~2018-03-15 10:42] MED LIST changes: -BACT800T5 PO; -CEPH250T PO; -GLIP5 OR; +GLUCKIT15; +GLUCTES12; -GLUCTES27 XX; +HYDR-3583 PO; +LANCETS1 MI1; +LEVEMIR SQ; -LISI-357 PO; -METF1000 PO; -METF500 PO; -NOVO7030P2 SQ
[2018-03-15 10:46] VITALS: BP 151/67; PULSE 85; RESP 18; TEMP 98; O2SAT 97
[2018-03-15] MEDS ORDERED: KETOROLAC TROMETHAMINE 60 MG/2 ML (IM) VIAL IM ONE (12:00)
--- NOTE | 2018-03-15 12:44 | RADRPT ---
EXAM DATE: 03/15/2018 12:40 PM EDT AGE/SEX: 47 years / Male INDICATIONS: Pulling on pipe yesterday, has left shoulder pain CLINICAL DATA: This is the patient's initial encounter. Patient reports that signs and symptoms have been present for 1 day and indicates a pain score of 6/10. MEDICAL/SURGICAL HISTORY: Diabetes mellitus type II. None. COMPARISON: No prior exams available for comparison. FINDINGS: Bone density is normal. The osseous structures are normal alignment. Asymmetric hypertrophy of the la teral left clavicle at the AC joint. No dislocation needed the a.c. or glenohumeral joint. There is n ormal range of motion between internal and external rotation. Visualized left upper ribs are intact. CONCLUSION: No evidence of recent bony injury or dislocation. Electronically signed by: Sánchez Farah MD 03/15/2018 12:43 PM EDT
[2018-03-15] MEDS ORDERED: IBUP1TAB7 PO (12:55)
--- NOTE | 2018-03-15 12:55 | PD ---
HPI Chief Complaint: Musculoskeletal Complaint Time Seen by Provider: 11:08 Travel History International Travel<30 days: No Contact w/Intl Traveler<30days: No Traveled to known affect area: No History of Present Illness HPI 47-year-old male here with left shoulder pain 2 days. He reports he injured the shoulder while pulling a 150 foot long hose. He felt immediate pain within the shoulder. He now has pain with range of motion. Symptom severity is moderate. Worse with movement and relieved with rest. He denies altered sensation or weakness of the extremity. PFSH Past Medical History Anxiety: Yes Depression: Yes Heart Rhythm Problems: No Cancer: No Cardiovascular Problems: Yes High Cholesterol: No Chest Pain: No Congestive Heart Failure: No Diabetes: Yes ("OUT OF INSULIN") Patient Takes Glucophage: No Diminished Hearing: No Gastrointestinal Disorders: Yes GERD: Yes Genitourinary: No Hypertension: Yes Immune Disorder: No Implanted Vascular Access Dvce: No Musculoskeletal: Yes Neurologic: No Reproductive: No Respiratory: Yes (pneumonia) Renal Failure: Yes Influenza Vaccination: No Past Surgical History Other Surgery: Yes (left testacle/groin incision and drainage) Social History Alcohol Use: Yes (X2 PER MONTH/3 BEERS) Tobacco Use: Yes (1.5 ppd) Substance Use: Yes (MARIJUANA, benzos, narcs, etoh) Allergies-Medications (Allergen,Severity, Reaction): Coded Allergies: No Known Allergies (Verified Allergy, Unknown, 03/15/18) Reported Meds & Prescriptions Reported Meds & Active Scripts Active Ibuprofen 800 Mg Tab 800 Mg PO Q6HR PRN Glucocom Test Strips (Blood Glucose Test Strips) 1 Genny Genny Ea .XX DIRECTED Lancets 1 Mis Mis Ea .XX DIRECTED Glucocom Blood Glucose Mo W/Device (Device) 1 Kit Kit Kit .XX DIRECTED Levemir Inj (Insulin Detemir) 1,000 unit/ 10 ML Vial 10 Units SQ HS Do not mix with any other Insulin. Reported Hydrocodone-Acetaminophen 10-325 mg Tab 1 Tab PO Q6H PRN Review of Systems Except as stated in HPI: all other systems reviewed are Neg General / Constitutional: No: Fever Eyes: No: Visual changes HENT: No: Headaches Cardiovascular: No: Chest Pain or Discomfort Respiratory: No: Shortness of Breath Gastrointestinal: No: Abdominal Pain Genitourinary: No: Dysuria Skin: No Rash Physical Exam Narrative GENERAL: Alert and well-appearing 47-year-old male. No distress. SKIN: Warm and dry. HEAD: Normocephalic. EYES: No injection or drainage. NECK: Supple CARDIOVASCULAR: Regular rate and rhythm RESPIRATORY: Breath sounds equal bilaterally. No accessory muscle use. GASTROINTESTINAL: Abdomen soft, non-tender, nondistended. MUSCULOSKELETAL: No cyanosis, or edema. Left upper extremity: +TTP to the entire shoulder. Forward extension and external rotation elicit pain within the shoulder. Positive Neer's test. Palpable radial pulse. Sensation intact. Cap refill intact. Data Data Last Documented VS Vital Signs Date Time Temp Pulse Resp B/P (MAP) Pulse Ox O2 Delivery O2 Flow Rate FiO2 03/15/18 10:46 98.0 85 18 151/67 (95) 97 Orders Orders Shoulder, Limited(2vws) (03/15/18 ) Ketorolac Inj (Toradol Inj) (03/15/18 12:00) Sling Cradle Arm (03/15/18 ) Sling Cradle Arm (03/15/18 ) Ed Discharge Order (03/15/18 12:55) [facility] Medical Decision Making Medical Screen Exam Complete: Yes Emergency Medical Condition: Yes Differential Diagnosis Rotator cuff injury, shoulder sprain/strain, fracture, dislocation Narrative Course 47-year-old male here with left shoulder pain. Extremities neurovascularly intact. Patient is requesting narcotic pain medication specifically. x-rays negative for fracture. I suspect a minor rotator cuff injury. Sling was provided. He is to follow-up with primary doctor orthopedic. Diagnosis Primary Impression: Shoulder sprain Qualified Codes: S43.402A - Unspecified sprain of left shoulder joint, initial encounter Referrals: Orthopedist Primary Care Physician Additional Instructions: Medication as directed. Follow-up with your primary doctor. Sling for comfort Scripts Ibuprofen (Ibuprofen) 800 Mg Tab 800 MG PO Q6HR Y for PAIN, #40 TAB 0 Refills Prov: Mona Coelho 03/15/18 Disposition: 01 DISCHARGE HOME Condition: Stable Mona Coelho Mar 15, 2018 12:55
== END 2018-03-15 13:24 | disposition home or self-care (01) ==
LOC: PHEFT 10:42
DX: S43.402A Unspecified sprain of left shoulder joint, initial encounter (principal); E11.9 Type 2 diabetes mellitus without complications; I10 Essential (primary) hypertension; F19.90 Other psychoactive substance use, unspecified, uncomplicated; Z72.0 Tobacco use
CPT/HCPCS: 73030; 96372; 99283; J1885